=== PATIENT | female | born 1975 | race African-American/Black ===

== ENCOUNTER 2021-10-17 07:33 | Day surgery (SDC) | payer MEDICAID ==
[2021-10-14 10:34] VITALS: BMI 38.7
[2021-10-17] MEDS ORDERED: Acetaminophen 500 MG TAB ONE (10:09)
[2021-10-17] MEDS ORDERED: Ketorolac Tromethamine 30 MG/ML VIAL ONE (10:09)
[2021-10-17] MEDS ORDERED: Midazolam HCl 2 mg/2 ml Vial ONE (13:25)
[2021-10-17] MEDS ORDERED: Fentanyl 100 MCG/2 ML VIAL ONE (13:25)
[2021-10-17] MEDS ORDERED: EPINEPHrine 1 MG/ML AMP ONE (13:28)
[2021-10-17] MEDS ORDERED: Lidocaine 1% w/Epinephrine 1:100K 20 ML VIAL ONE (13:28)
[2021-10-17] MEDS ORDERED: Isosulfan Blue 50 MG/5 ML VIAL ONE (13:28)
[2021-10-17] MEDS ORDERED: Bupivacaine PF 0.5% 30 ML VIAL ONE (13:28)
[2021-10-17] MEDS ORDERED: ceFAZolin (BATCH) 2 GM/100 ML BAG ONE (13:40)
[2021-10-17] MEDS ORDERED: Ondansetron PF 4 MG/2 ML Vial ONE (13:56)
[2021-10-17] MEDS ORDERED: ePHEDrine 50 MG/ML VIAL ONE (13:56)
[2021-10-17] MEDS ORDERED: PHENYLEPHRINE-NS 100 MCG/ML 10 ML SYRINGE ONE (13:56)
[2021-10-17] MEDS ORDERED: Lidocaine 1% PF 5 ML VIAL ONE (13:56)
[2021-10-17] MEDS ORDERED: PROPOFOL 200 MG/20 ML VIAL ONE (13:56)
[2021-10-17] MEDS ORDERED: Dexamethasone 20 MG/5 ML VIAL ONE (13:56)
[2021-10-17] MEDS ORDERED: HYDROmorphone 2 MG/ML VIAL ONE (14:11)
[2021-10-17] MEDS ORDERED: Bupivacaine 0.25% 10 ML VIAL ONE ×2 (15:15→15:17)
== END 2021-10-17 19:00 | disposition home or self-care (01) ==
LOC: SDC 07:33
PROVIDERS: ATTEND Specialist
PROC: 07B50ZX Excision of Right Axillary Lymphatic, Open Approach, Diagnostic (ICD-10-PCS; principal; 2021-10-17)
PROC: 0JPT0WZ Removal of Totally Implantable Vascular Access Device from Trunk Subcutaneous Tissue and Fascia, Open Approach (ICD-10-PCS; principal; 2021-10-17)
PROC: 0HBT0ZZ Excision of Right Breast, Open Approach (ICD-10-PCS; principal; 2021-10-17)
DX: C50.411 Malignant neoplasm of upper-outer quadrant of right female breast (principal); C77.3 Secondary and unspecified malignant neoplasm of axilla and upper limb lymph nodes; Z17.0 Estrogen receptor positive status [ER+]; Z79.899 Other long term (current) drug therapy; Z88.5 Allergy status to narcotic agent
CPT/HCPCS: 76098; 78195; 88307; 88342; A9541; C1713; J0171; J0690; J1100; J1170; J1642; J1885; J2250; J2405; J2704; J3010; J3490; Q9968; S0020

== ENCOUNTER 2021-11-11 12:54 | Outpatient (CLI) | payer OTHER ==
[2021-11-12 00:50] LABS: SARS-CoV-2 PCR by NAA Not Detected (NotDetected)
== END 2021-11-11 12:55 | disposition home or self-care (01) ==
LOC: LABBT 12:54
PROVIDERS: ATTEND Specialist
DX: Z01.818 Encounter for other preprocedural examination (principal); C50.411 Malignant neoplasm of upper-outer quadrant of right female breast; Z17.0 Estrogen receptor positive status [ER+]; Z20.822 Contact with and (suspected) exposure to COVID-19
CPT/HCPCS: 93005; 93010; U0003; U0005

== ENCOUNTER 2021-11-14 10:27 | Observation (INO) | payer OTHER ==
[2021-11-11 14:48] VITALS: BMI 38.7
[2021-11-14] MEDS ORDERED: Acetaminophen 500 MG TAB ONE (10:44)
[2021-11-14] MEDS ORDERED: Ketorolac Tromethamine 30 MG/ML VIAL ONE (10:44)
[2021-11-14] MEDS ORDERED: fentaNYL Citrate/PF 100 MCG/2 ML SYRINGE ONE (12:14)
[2021-11-14] MEDS ORDERED: Ketamine 50 MG/ML (10ML VIAL) ONE (12:14)
[2021-11-14] MEDS ORDERED: Bupivacaine 0.25% 10 ML VIAL ONE (12:24)
[2021-11-14] MEDS ORDERED: Lidocaine 1% w/Epinephrine 1:100K 20 ML VIAL ONE (12:24)
[2021-11-14] MEDS ORDERED: Midazolam HCl 2 mg/2 ml Vial ONE (12:35)
[2021-11-14] MEDS ORDERED: Dexamethasone 20 MG/5 ML VIAL ONE (12:48)
[2021-11-14] MEDS ORDERED: PROPOFOL 200 MG/20 ML VIAL ONE (12:48)
[2021-11-14] MEDS ORDERED: ePHEDrine 50 MG/ML VIAL ONE (12:48)
[2021-11-14] MEDS ORDERED: PHENYLEPHRINE-NS 100 MCG/ML 10 ML SYRINGE ONE ×2 (12:48→14:23)
[2021-11-14] MEDS ORDERED: Rocuronium Bromide 10 MG/ML (10ML VIAL) ONE (12:48)
[2021-11-14] MEDS ORDERED: Ondansetron PF 4 MG/2 ML Vial ONE (12:48)
[2021-11-14] MEDS ORDERED: Lidocaine 1% PF 5 ML VIAL ONE (12:48)
[2021-11-14] MEDS ORDERED: Glycopyrrolate 0.2 MG/ML 5 ML SYRINGE ONE (12:48)
[2021-11-14] MEDS ORDERED: Fentanyl 100 MCG/2 ML VIAL ONE ×2 (15:35→15:44)
[2021-11-14] MEDS ORDERED: Dextrose 5% in Water 1,000 ML IV PRN (15:45)
[2021-11-14] MEDS ORDERED: HYDROcodone/Acetaminophen 7.5/325 mg Tablet PO PRN (15:45)
[2021-11-14] MEDS ORDERED: Dextrose 50% Abboject 50 ML SYRINGE SLOW IVP PRN (15:45)
[2021-11-14] MEDS ORDERED: Morphine 2 MG/ML VIAL SLOW IVP PRN (15:45)
[2021-11-14] MEDS ORDERED: Promethazine HCl 25 MG/ML VIAL IM PRN (15:45)
[2021-11-14] MEDS ORDERED: Ondansetron PF 4 MG/2 ML Vial IVP PRN (15:45)
[2021-11-14] MEDS ORDERED: Morphine 4 MG/ML VIAL SLOW IVP PRN (15:45)
[2021-11-14] MEDS ORDERED: hydrALAZINE 20 MG/ML VIAL SLOW IVP PRN (15:45)
[2021-11-14] MEDS ORDERED: HYDROmorphone 0.5 MG/0.5 ML SYRINGE ONE ×2 (15:51→16:05)
[2021-11-14] MEDS ORDERED: Promethazine HCl 25 MG/ML VIAL ONE (16:21)
[2021-11-14] MEDS ORDERED: D5 1/2 NS w/20 mEq KCL 1,000 ML ONE (18:51)
[2021-11-14] MEDS: HYDROcodone/Acetaminophen 7.5/325 mg Tablet PO PRN (20:19)
[2021-11-14] MEDS: Famotidine 20 MG TAB PO SCH (20:19)
[2021-11-14] MEDS: D5 1/2 NS w/20 mEq KCL 1,000 ML IV SCH (20:30)
[2021-11-14] MEDS ORDERED: DULoxetine 30 MG CAP PO SCH (21:00)
[2021-11-15] MEDS: HYDROcodone/Acetaminophen 7.5/325 mg Tablet PO PRN ×2 (03:47→10:41)
[2021-11-15] MEDS: D5 1/2 NS w/20 mEq KCL 1,000 ML IV SCH (05:55)
[2021-11-15 06:04] LABS: #Lymphocytes 1.1 thou/uL (1.20-3.40); #Monocytes 0.7 thou/uL (0.11-0.59); #Neutrophils 6.9 thou/uL (1.40-6.50); %Basophils 0.3 % (0.0-1.0); %Eosinophils 0.1 % (0.0-10.0); %Lymphocytes 12.9 % (21.0-51.0); %Monocytes 7.7 % (0.0-10.0); %Neutrophils 78.9 % (42.0-75.0); Hemoglobin 11.5 g/dL (12.0-16.0); Mean Corpuscular HGB CONC 33.9 g/dL (32.0-36.0); Mean Corpuscular Hemoglobin 27.3 pg (27.0-31.0); Mean Corpuscular Volume 80.6 fL (78.0-98.0); Mean Platelet Volume 8.2 fL (7.4-10.4); Platelet Count 233 thou/uL (130-400); RBC Distribution Width 14.2 % (11.5-14.5); Red Blood Cell (RBC) Count 4.23 mill/uL (4.20-5.40); White Blood Cell (WBC) Count 8.7 thou/uL (4.8-10.8)
[2021-11-15 07:50] VITALS: BP 109/64; TEMP 98.4
[2021-11-15] MEDS: Famotidine 20 MG TAB PO SCH (08:07)
[2021-11-15] MEDS ORDERED: Prevnar 13-Val Conj/PF 0.5 ML SYRINGE IM ONE (09:00)
== END 2021-11-15 11:30 | disposition home or self-care (01) ==
LOC: SDC 10:27 → SJJU 15:45
PROVIDERS: ADMIT Specialist; ATTEND Specialist
PROC: 0HTT0ZZ Resection of Right Breast, Open Approach (ICD-10-PCS; principal; 2021-11-14)
PROC: 07T50ZZ Resection of Right Axillary Lymphatic, Open Approach (ICD-10-PCS; 2021-11-14)
DX: C50.411 Malignant neoplasm of upper-outer quadrant of right female breast (principal); C77.3 Secondary and unspecified malignant neoplasm of axilla and upper limb lymph nodes; Z17.0 Estrogen receptor positive status [ER+]; Z79.899 Other long term (current) drug therapy; Z91.040 Latex allergy status
CPT/HCPCS: 36415; 85025; 88309; 96374; 96376; G0378; J1100; J1170; J1885; J2250; J2270; J2405; J2550; J2704; J3010; J3480; J3490; S0020